=== PATIENT | male | born 1970 | race Caucasian/White ===

== ENCOUNTER 2022-03-03 16:38 | Emergency (ER) | payer BC ==
[2022-03-03] MEDS ORDERED: Sodium Chloride 0.9% 1,000 ML IV SCH (17:30)
[2022-03-03 18:12] LABS: ESTIMATED GFR > 60 (>60)
== END 2022-03-03 19:37 | disposition home or self-care (01) ==
LOC: JP.ED 16:38
DX: N39.0 Urinary tract infection, site not specified (principal); I10 Essential (primary) hypertension; Z88.0 Allergy status to penicillin; Z79.899 Other long term (current) drug therapy
CPT/HCPCS: 36415; 71045; 80053; 81001; 84484; 85025; 87086; 87088; 87186; 93005; 99284; J7030; 93010; 99283